=== PATIENT | male | born 1960 | race Caucasian/White ===

== ENCOUNTER 2020-08-04 18:37 | Emergency (ER) | payer OTHER, SELFPAY ==
[2020-08-04 18:38] VITALS: BP 186/76; PULSE 114; RESP 18; TEMP 37.3; O2SAT 99; BMI 34.4
[2020-08-04 19:00] LABS: Basophils # 0.1 K/mm3 (0-0.2); Eosinophils # 0.2 K/mm3 (0.0-0.4); Eosinophils % 2.8 % (0.1-12.0); Hematocrit 49.1 % (42.0-52.0); Hemoglobin 16.4 g/dL (14.1-18.0); Lymphocytes # 2.9 K/mm3 (0.7-4.5); Lymphocytes % 40.1 % (10-50); Mean Corpuscular HGB Conc 33.3 g/dL (31.8-35.4); Mean Corpuscular Hemoglobin 30.5 pg (27.0-31.2); Mean Corpuscular Volume 91.5 fl (80-94); Mean Platelet Volume 7.4 fl (7.4-10.4); Monocytes # 0.1 K/mm3 (0.1-1.0); Monocytes % 1.5 % (1.7-9.3); Neutrophils % 54.6 % (37.0-80.0); Platelet Count 357 K/mm3 (142-424); Red Blood Count 5.37 M/mm3 (4.60-6.20); Red Cell Distribution Width 13.5 % (11.5-17.5); White Blood Count 7.4 K/mm3 (4.8-10.8)
[2020-08-04 19:01] LABS: Chloride 101 mmol/L (98-107); Potassium 3.9 mmoL/L (3.5-5.1); Sodium 143 mmol/L (136-145)
--- NOTE | 2020-08-04 19:01 | XR_ITS ---
PROCEDURE: XR CHEST 2V CLINICAL HISTORY: cough COMPARISON: No exams were available for comparison FINDINGS: The cardiomediastinal silhouette and pulmonary vascularity are within normal limits. The lungs are clear without infiltrates, suspicious nodules, or pleural effusions. DISH of the midthoracic spine. Degenerative changes of the shoulders IMPRESSION: No acute findings. Dictated by: Jose Alberto Ingram MD 08/05/2020 06:05 Jose Alberto Ingram MD in [place] 08/05/2020 06:05
[2020-08-04 19:03] LABS: Blood Urea Nitrogen 21 mg/dl (9-20); Creatinine Clearance Estimated 103 mL/min (50-200); Estimated Glomerular Filt Rate 62 ml/min (>60); GFR (African American) 75 ML/MIN (>60)
--- NOTE | 2020-08-04 19:03 | HMH.EDGENADL ---
ED Disposition Condition on Discharge: Good - Critical Care Critical Care Time: No <DelanochristianoRigoberto joe - Last Filed: 08/04/20 19:49> <Young Abernathy - Last Filed: 08/04/20 21:26> Clinical Impression: Dyspepsia, Abdominal pain in male, Diverticulitis, COVID-19 virus IgG antibody detected Disposition: Home, Self-Care Instructions: DI for Diverticulitis Additional Instructions: fluids and recheck if any problems and call pcp for follow up Prescriptions: metroNIDAZOLE [Flagyl 500mg Tablet] 500 mg PO TID #30 tab Prescription Printed levoFLOXacin [Levaquin 500mg tab] 500 mg PO DAILY #7 tab Prescription Printed Referrals: Margie Gutiérrez [Primary Care Provider] - Attestation: On 08/04/20, the high probability of a clinically significant, sudden or life threatening deterioration of the following system(s) required my full and direct attention, intervention and personal management. The time I documented below is in addition to time spent performing reported procedures but includes the following listed in this critical care notation. Medical Decision Making - Medical Records Medical records reviewed: Yes: I reviewed the patient's medical records. - Yoshi Inquiry Pt receiving controlled substance: No - Lab Data Result diagrams: 08/04/20 18:46 08/04/20 18:46 - ECG Data Tracing #1 ECG initial impression date: 08/04/20 ECG initial impression time: 19:08 - Reevaluation(s) Time: 19:49 <Rigoberto Amos - Last Filed: 08/04/20 19:49> - Lab Data Lab results reviewed: Yes: I reviewed the patient's lab results. Result diagrams: 08/04/20 18:46 08/04/20 18:46 - Radiology Data #1 Image(s): Chest Image Reviewed: Yes I reviewed the patient's radiology image Preliminary Findings: Normal/NAD - CT Data CT Scan: Abdomen, Pelvis Time Received: 21:[address] Reviewed: Yes: I have viewed the radiologist's interpretation Preliminary Findings: Abnormal (diverticulitis) <Young Abernathy - Last Filed: 08/04/20 21:26> Vital Signs: 08/04/20 18:38 Temperature 99.2 F Temperature Source Oral Pulse Rate [Left Radial] 114 H Respiratory Rate 18 Blood Pressure [Right Arm] 186/76 H Blood Pressure Mean [Right Arm] 112 Blood Pressure Source [Right Arm] Automatic Cuff Blood Pressure Position [Right Arm] Sitting 02 Sat by Pulse Oximetry 99 Oxygen Delivery Method Room Air - Lab Data Lab Results 08/04/20 18:46: WBC 7.4, RBC 5.37, Hgb 16.4, Hct 49.1, MCV 91.5, MCH 30.5, MCHC 33.3, RDW 13.5, Plt Count 357, MPV 7.4, Neut % (Auto) 54.6, Lymph % (Auto) 40.1, Montgomery % (Auto) 1.5 L, Eos % (Auto) 2.8, Baso % (Auto) 1.0, Neut # (Auto) 4.0, Lymph # (Auto) 2.9, Montgomery # (Auto) 0.1, Eos # (Auto) 0.2, Baso # (Auto) 0.1 08/04/20 18:46: Sodium 143, Potassium 3.9, Chloride 101, Carbon Dioxide 24, Anion Gap 21.9 H, BUN 21 H, Creatinine 1.20, Estimated Creat Clear 103, Estimated GFR 62, Est GFR ( Amer) 75, Glucose 82, Calcium 10.3 H, Total Bilirubin 1.1, AST 39, ALT 36, Alkaline Phosphatase 57, Total Protein 9.5 H, Albumin 5.9 H, Globulin 3.6 H, Albumin/Globulin Ratio 1.6 08/04/20 18:46: SARS-CoV-2 IgG Ab (Rapid) Positive A, SARS-CoV-2 IgM Ab (Rapid) Negative 08/04/20 18:46: Troponin I < 0.01, Lipase 233 Orders (Tests/Meds): ED MEDICATIONS Discontinued Medications Generic Name Dose Route Start Last Admin Trade Name Freq PRN Reason Stop Dose Admin Ketorolac Tromethamine 30 mg 08/04/20 20:10 08/04/20 20:21 Ketorolac 30mg/Ml Vial IV 08/04/20 20:11 30 mg ONCE ONE Administration Promethazine HCl 25 mg 08/04/20 19:47 08/04/20 19:57 Promethazine Hcl 25mg/Ml 1ml Vial IV 08/04/20 19:48 25 mg ONCE ONE Administration Sodium Chloride 25 ml 08/04/20 19:47 08/04/20 19:57 Sodium Chloride 0.9% 25ml Bag IV 08/04/20 19:48 25 ml ONCE ONE Administration ORDERS Category Date Time Status CT abdomen pelvis w con Stat Cat Scan 08/04/20 19:48 Taken XR chest 2V Stat Exams
[2020-08-04 19:04] LABS: Alanine Aminotransferase 36 U/L (12-78); Albumin Level 5.9 g/dl (3.5-5.0); Albumin/Globulin Ratio 1.6 (1.1-1.8); Alkaline Phosphatase 57 U/L (38-126); Anion Gap 21.9 mEq/L (5-15); Aspartate Amino Transferase 39 U/L (17-59); Bilirubin,Total 1.1 mg/dl (0.2-1.3); Calcium 10.3 mg/dl (8.4-10.2); Carbon Dioxide 24 mmol/L (22.0-30.0); Globulin 3.6 g/dL (1.3-3.2); Glucose 82 mg/dl (74-100); Total Protein,Serum 9.5 g/dl (6.3-8.2)
--- NOTE | 2020-08-04 19:06 | ECG_ITS ---
APPROVED REPORT Exam: Resting ECG HR:95 bpm ECG Measurements Heart Rate 95 AXES AZ 152 P 60 QRSd 92 QRS 75 QT 346 T 6 QTc 434 Conclusion Normal sinus rhythm Nonspecific ST and T wave abnormality Abnormal ECG Electronically signed by : Gabino Shah, 08/06/2020 19:59:16
--- NOTE | 2020-08-04 19:18 | PC.NURSE ---
received report from day nurse, evert machado rn
[2020-08-04 19:20] LABS: Lipase 233 U/L (23-300)
[2020-08-04 19:35] LABS: Coronavirus 19 IgG Antibody Positive (Negative); Coronavirus 19 IgM Antibody Negative (Negative)
[2020-08-04 19:44] LABS: Troponin I < 0.01 ng/ml (0.00-0.034)
--- NOTE | 2020-08-04 19:48 | CT_ITS ---
PROCEDURE: CT ABDOMEN PELVIS W CON CLINICAL INDICATION: abd pain Lower abdominal pain with nausea and vomiting COMPARISON: CT ABDPELW CT ABD PELVIS W/ CONTRAST from 03/03/2014 TECHNIQUE: IV Contrast: 75ML Isovue 370 Oral Contrast None Axial images obtained with sagittal and coronal reformats. All CT scans at the facility use one or more dose reduction, viz: automated exposure control, ma/kV adjustment per patient size (including targeted exams where dose is matched to indication, i.e. head), or iterative reconstruction technique. FINDINGS: LOWER THORAX: There is a subpleural opacity in the right lower lobe posteriorly and laterally not significantly changed measuring approximately 8 3 mm. ABDOMEN & PELVIS: Fatty liver. No radiopaque gallstones. The spleen and adrenal glands have an unremarkable appearance. No pancreatic mass or peripancreatic inflammatory change. No renal or ureteral calculi. There are left-sided parapelvic renal cysts versus hydronephrosis.. There is a left retroaortic live renal vein. There is given history of appendectomy. Stomach is slightly prominent with an air-fluid level. There is diverticulosis of the descending and sigmoid colon with stranding of the pericolic fat of the sigmoid colon in the left lower quadrant with inflamed diverticula noted. No abscess or perforation apparent. No free fluid apparent. There are degenerative changes in the thoracic and lumbar spine with prominent anterior osteophytes in the lower thoracic spine consistent with DISH. IMPRESSION: 1. Acute diverticulitis of the sigmoid colon. No evidence of abscess or perforation. 2. Left-sided parapelvic renal cyst versus hydronephrosis 3. Other nonacute findings as described above Dictated by: Jose Alberto Ingram MD 08/05/2020 09:32 Jose Alberto Ingram MD in [place] 08/05/2020 09:32
--- NOTE | 2020-08-04 20:26 | PC.NURSE ---
pt to RAD
[2020-08-04 21:51] VITALS: BP 121/75; PULSE 76; RESP 16; TEMP 36.7; O2SAT 98
--- NOTE | 2020-08-05 08:34 | PC.NURSE ---
Pt called and advised of positive covid test results.
== END 2020-08-04 21:55 | disposition home or self-care (01) ==
PROVIDERS: Emergency Provider Emergency Medicine; PCP Family Medicine
DX: U07.1 COVID-19 (principal); K57.92 Diverticulitis of intestine, part unspecified, without perforation or abscess without bleeding; Z01.84 Encounter for antibody response examination; Z88.5 Allergy status to narcotic agent; R00.0 Tachycardia, unspecified
CPT/HCPCS: 71046; 74177; 80053; 83690; 84484; 85025; 86328; 93005; 96365; 96375; 99283; U0003; U0004

== ENCOUNTER → 2021-01-19 15:48 | Outpatient (CLI) | payer OTHER, SELFPAY | PROVIDERS: Visit Provider Internal Medicine Gastroenterology | DX: Z01.812 Encounter for preprocedural laboratory examination (principal); Z11.52 Encounter for screening for COVID-19; Z12.11 Encounter for screening for malignant neoplasm of colon | CPT/HCPCS: U0003 ==

== ENCOUNTER 2021-01-22 06:59 | Day surgery (SDC) | payer OTHER, SELFPAY ==
[2021-01-16 08:48] VITALS: BMI 34.0
[2021-01-22 07:20] VITALS: BP 143/79; PULSE 60; RESP 18; TEMP 36.2; O2SAT 99
--- NOTE | 2021-01-22 07:56 | HMH.ANESCL ---
[facility] Anesthesia Checklist - Patient Identification Patient Identification: Arm Band - Structural Data Admitted From: Home Planned Operative Procedure/s: Colonoscopy Consent for Planned Operative Procedure(s) Verified: Yes - NPO Status Verified Time NPO: 00:00 - Airway Assessment C-Spine Mobility Assessed: Yes TMJ Mobility Assessed: Yes Dentition: Good Dentition - Neurological Assessment Level of Consciousness: Awake Hx Seizures: No Numbness or tingling in extremities: No - Anesthesia Plan Anesthesia Risk discussed: Yes Anesthesia Plan: Verified ASA Class: II Anesthesia Type: MAC [facility] History I have reviewed the patient's past medical history: Yes Medical History: Reports:: Hypertension Denies:: Cancer, Diabetes Mellitus Type 1, Diabetes Mellitus Type 2, Internal Pacemaker, MRSA, Seizures *Have you ever received a pneumonia vaccine?: No *Have you received a flu vaccine this season?: Yes Anesthesia experience/problems:: None Other Surgeries: No: Pacemaker Amputation: No Fractures: No - *Social History Last grade of school completed: 11th or 12th Smoking Status: Never smoker Alcohol Intake: current Alcohol Intake Frequency:: 3 or more drinks per day Substance Use Type: denies use *Occupational Status:: employed Housing: house Household Members: spouse *Travel in the last 8 weeks: None Family Hx:: No significant family history
[2021-01-22 07:58] VITALS: O2SAT 97
--- NOTE | 2021-01-22 08:02 | P.PCN_ITS ---
[facility] Procedure Note Procedure Note:: Colonoscopy Procedure Report: Colonoscopy Endoscopist: Richard Ellington II, MD Referring physician: Margie Gutiérrez MD Date of Procedure: January 22, 2021 Equipment: Olympus 190 variable stiffness pediatric colonoscope Sedation: MAC sedation Indication: Mr. Rowan is a 60-year-old gentleman who is here for follow-up screening/surveillance colonoscopy. His last colonoscopy was 10 years ago (Drake Burgess M.D.) at [facility]. The patient reports no weight loss, change in his bowel habits or rectal bleeding. He reports no family history of colon cancer. He has had a couple of bouts of diverticulitis and his last bout was in August 2020. He did go to the emergency department and was treated with outpatient antibiotics. He does get some intermittent right lower quadrant abdominal pain. He feels this is his diverticular pain. He had an appendectomy in 1990. Procedure: Prior to the procedure, a history and physical exam was performed, and patient's medications and allergies were reviewed. The risks, benefits and alternatives of the sedation and procedure were discussed with the patient. All questions were answered and informed consent was obtained. The patient was brought to the procedure room. Patient identification and proposed procedure were verified by the physician and the nurse. The patient was placed in a left lateral decubitus position and the scope was passed under direct vision. Throughout the procedure, the patient's blood pressure, pulse, and oxygen saturations were monitored continuously. The colonoscopy was accomplished without difficulty. The patient tolerated the procedure well. Findings: On digital rectal examination there was normal rectal tone. There were no external hemorrhoids. The prostate was 2+ with moderate firmness throughout the prostate gland and some increased firmness along the right lobe upper margin. The colonoscope was introduced through the anal canal to the rectum and advanced to the cecum. The ileocecal valve and appendiceal orifice were identified. The scope was advanced a short distance into the ileum which appeared grossly normal. The scope was then withdrawn into the colon. There were scattered diverticuli throughout the colon but more predominantly in the descending and sigmoid colon (LEFT colon). The remainder of the colonic mucosa was normal. The rectum itself was normal. Upon retroflexion within the rectum there were grade 1-2 internal hemorrhoids. The preparation was excellent throughout with [place] Preparation Score of 9. The cecal time was 10 minutes. Impression: 1. Pandiverticulosis 2. Grade 1-2 internal hemorrhoids 3. Prostate firmness/asymmetry Plan: The patient will not require screening/surveillance colonoscopy again for 10 years by ACS guidelines. I would encourage dietary measures and bulking fiber supplementation on a long- term daily maintenance basis. I would recommend PSA testing if this has not been done recently.
[2021-01-22 08:22] VITALS: BP 95/56; PULSE 67; RESP 18; TEMP 36.4; O2SAT 94
[2021-01-22 08:32] VITALS: BP 108/69; PULSE 53; RESP 18; O2SAT 96
[2021-01-22 08:42] VITALS: BP 115/67; PULSE 58; RESP 18; O2SAT 97
[2021-01-22 09:03] VITALS: BP 130/71; PULSE 51; RESP 18; O2SAT 99
== END 2021-01-22 09:09 | disposition home or self-care (01) ==
LOC: OUTP 07:00
PROVIDERS: PCP Family Medicine; Visit Provider Internal Medicine Gastroenterology
PROC: 0DJD8ZZ Inspection of Lower Intestinal Tract, Via Natural or Artificial Opening Endoscopic (ICD-10-PCS; CPT 45378; principal; 2021-01-22 08:00)
DX: Z12.11 Encounter for screening for malignant neoplasm of colon (principal); K57.30 Diverticulosis of large intestine without perforation or abscess without bleeding; K64.0 First degree hemorrhoids; Z90.49 Acquired absence of other specified parts of digestive tract; I10 Essential (primary) hypertension; Z88.6 Allergy status to analgesic agent; Z79.899 Other long term (current) drug therapy
CPT/HCPCS: 45378

== ENCOUNTER 2023-05-01 08:47 | Emergency (ER) | payer OTHER, SELFPAY ==
[2023-05-01] VITALS (14 sets, daily range): BP systolic 115–160; BP diastolic 69–100; PULSE 57–152; RESP 18–19; TEMP 36.9–37; O2SAT 95–99; BMI 36.1
--- NOTE | 2023-05-01 08:52 | ECG_ITS ---
APPROVED REPORT Exam: Resting ECG HR:151 bpm ECG Measurements Heart Rate 151 AXES QRSd 93 QRS 41 QT 259 T 49 QTc 345 Conclusion ATRIAL FIBRILLATION WITH RAPID VENTRICULAR RESPONSE NONSPECIFIC ST & T-WAVE ABNORMALITY CRITICAL TEST RESULT UNCONFIRMED REPORT Electronically signed by : Gabino Shah MD 05/01/2023 18:32:12
--- NOTE | 2023-05-01 08:55 | PC.NURSE ---
Dr. Bustamante at [facility] for pt eval
--- NOTE | 2023-05-01 08:55 | XR_ITS ---
FINAL REPORT CLINICAL HISTORY: new afrvr COMPARISON: 08/04/2020 FINDINGS: SINGLE-VIEW CHEST The heart size is normal. The mediastinum is normal. The lungs are clear. There is no pneumothorax. IMPRESSION: No acute cardiopulmonary process. Reviewed, Interpreted and Dictated by Aden Dickinson MD Transcribed by Waleska Ku Authenticated and [facility]
--- NOTE | 2023-05-01 09:16 | HMH.EDGENADL ---
Discharge Plan Disposition Patient Disposition: Home, Self-Care Prescriptions Prescriptions: No Action lisinopril 20 MG tablet 20 mg PO DAILY allopurinol 100 MG tablet 100 mg PO DAILY fenofibrate 160 MG tablet 80 mg PO DAILY hydrochlorothiazide 12.5 mg capsule 12.5 mg PO DAILY Patient Comments: TAKE 1 CAPSULE BY MOUTH DAILY Referrals Follow up/Referrals: Margie Gutiérrez [Primary Care Provider] - See instructions Abdelrahman Sandoval MD [Staff Physician] - See instructions Clinical Impressions Clinical Impression: Atrial fibrillation with rapid ventricular response Discharge ED Provider: Mao Bustamante General Adult HPI General Chief complaint: Arrhythmia/Palpitations Stated complaint: irregular heartbeat Time Seen by Provider: 05/01/23 08:53 Mode of Arrival: Ambulatory Source of Information: Patient Limitations: No Limitations History of Present Illness HPI narrative: Is a 62-year-old male with history of EVY, intermittent irregular heartbeat presenting with palpitations. Patient states that he woke up today, 05/01 with palpitations and feeling of anxiety. Denies chest pain, shortness of breath, nausea or vomiting, diaphoresis, weakness, lower extremity swelling, or any other concerns associated. Has had this in the past intermittently for which she wore a Holter monitor, but nothing was caught on Holter monitor. Patient states he went to bed just fine yesterday, woke up today and had palpitations. Patient is positive this was not present yesterday. Related Data Home Medications Medication Instructions Recorded Confirmed allopurinol 100 mg tablet 100 mg PO DAILY gout 01/16/21 05/01/23 fenofibrate 160 mg tablet 80 mg PO DAILY Cholesterol 01/16/21 05/01/23 lisinopril 20 mg tablet 20 mg PO DAILY High Blood Pressure 01/16/21 05/01/23 hydrochlorothiazide 12.5 mg capsule 12.5 mg PO DAILY High Blood 05/01/23 05/01/23 Pressure Allergies Allergy/AdvReac Type Severity Reaction Status Date / Time codeine [CODEINE] Allergy Mild Verified 05/03/21 09:43 [facility] Disclaimer: The information contained in this section may have been updated after the patient was seen, as this information can be updated by other users. Social History Smoking Status: Never smoker second hand exposure: No alcohol intake: current substance use type: denies use current occupational status: employed Travel in the last 8 weeks: None household members: spouse housing: house current occupation: young current occupational exposures/hazards: No caffeine: No ROS Obtained: Yes All systems reviewed & no additional complaints except as documented Physical Exam General General appearance: alert, in no apparent distress, anxious and other ( ) Head Head exam: atraumatic and normocephalic Eye Eye exam: Present normal appearance, PERRL and EOMI ENT ENT exam: Present mucous membranes moist Neck Neck exam: Present normal inspection, full ROM and trachea midline Respiratory Respiratory exam: Present normal lung sounds bilaterally; Absent respiratory distress, wheezes, stridor, accessory muscle use or prolonged expiratory phase Cardiovascular Cardiovascular exam: Present tachycardia and irregular rhythm Abdominal Exam Abdominal exam: Present soft; Absent distention, tenderness, guarding, rebound, rigidity or normal bowel sounds Extremities Exam Extremities exam: Absent edema Neurological Exam Neurological exam: Present alert, oriented X3, CN II-XII intact and normal gait; Absent motor sensory deficit Skin Skin exam: Present warm and dry; Absent diaphoresis or erythema Medical Decision Making Medical Records Medical records reviewed: Yes I reviewed the patient's medical records. Yoshi Inquiry Pt receiving controlled substance: No Yoshi was queried for this patient: No Vital Signs: 05/01/23 08:48 05/01/23 08:55 05/01/23 09:01 Temperature 98.6 F Temperature Source Oral
[2023-05-01 09:23] LABS: Basophils # 0.1 K/mm3 (0-0.2); Basophils % 0.9 % (0.1-2.0); Eosinophils # 0.1 K/mm3 (0.0-0.4); Eosinophils % 1.7 % (0.1-12.0); Hematocrit 49.7 % (42.0-52.0); Hemoglobin 16.9 g/dL (14.1-18.0); Lymphocytes # 2.4 K/mm3 (0.7-4.5); Lymphocytes % 29.1 % (10-50); Mean Corpuscular HGB Conc 34.1 g/dL (31.8-35.4); Mean Corpuscular Hemoglobin 30.8 pg (27.0-31.2); Mean Corpuscular Volume 90.3 fl (80-94); Mean Platelet Volume 7.1 fl (7.4-10.4); Monocytes # 0.4 K/mm3 (0.1-1.0); Monocytes % 5.2 % (1.7-9.3); Neutrophils # 5.3 K/mm3 (1.8-7.8); Platelet Count 275 K/mm3 (142-424); Red Cell Distribution Width 13.1 % (11.5-17.5); White Blood Count 8.4 K/mm3 (4.8-10.8)
[2023-05-01 09:24] LABS: Alanine Aminotransferase 41 U/L (12-78); Albumin Level 4.9 g/dl (3.5-5.0); Albumin/Globulin Ratio 1.5 (1.1-1.8); Alkaline Phosphatase 59 U/L (38-126); Anion Gap 14.4 mEq/L (5-15); Aspartate Amino Transferase 41 U/L (17-59); Bilirubin,Total 0.7 mg/dl (0.2-1.3); Blood Urea Nitrogen 26 mg/dl (9-20); Calcium 9.7 mg/dl (8.4-10.2); Carbon Dioxide 28 mmol/L (22.0-30.0); Chloride 102 mmol/L (98-107); Chol/HDL Ratio 3.8 (1-3.5); Cholesterol 214 mg/dl (140-200); Creatinine Clearance Estimated 108 mL/min (50-200); Estimated Glomerular Filt Rate 68 ml/min (>60); GFR (African American) 82 ML/MIN (>60); Globulin 3.3 g/dL (1.3-3.2); Glucose 111 mg/dl (74-100); HDL Cholesterol 57 mg/dl (40-60); Potassium 4.4 mmoL/L (3.5-5.1); Sodium 140 mmol/L (136-145); Total Protein,Serum 8.2 g/dl (6.3-8.2); Triglycerides 159 mg/dl (30-150); VLDL Cholesterol 32 mg/dL (0-40)
[2023-05-01 09:30] LABS: Activated Partial Thrombo Time 26.5 seconds (22.8-30.6)
[2023-05-01 09:36] LABS: Direct LDL Cholesterol 117.36 mg/dL (100-129)
[2023-05-01 09:39] LABS: NT Pro Brain Natriuretic Pep. 40.6 pg/mL (0-125)
--- NOTE | 2023-05-01 09:43 | ECG_ITS ---
APPROVED REPORT Exam: Resting ECG HR:95 bpm ECG Measurements Heart Rate 95 AXES QRSd 101 QRS 26 QT 335 T 36 QTc 388 Conclusion ATRIAL FIBRILLATION ABNORMAL RHYTHM ECG UNCONFIRMED REPORT Electronically signed by : Gabino Shah MD 05/01/2023 18:31:42
[2023-05-01 09:44] LABS: T4 (Thyroxine) 8.9 ug/dl (5.53-11.0)
[2023-05-01 09:49] LABS: Troponin I < 0.01 ng/ml (0.00-0.034)
[2023-05-01 09:57] LABS: Thyroid Stimulating Hormone 1.71 uIU/mL (0.465-4.68)
--- NOTE | 2023-05-01 10:48 | PC.NURSE ---
@ 1035- MD at bedside to review procedure with pt & spouse, crash cart with BMV at bedside. @ 1039- Procedure consent competed with this RN @ 1045- and staff at bedside Etomidate at bedside and pulled per MD. Nasal canula with co2 capnograpy placed and O2 on at 6 lpm. @ 1046- gave time out was completed and reviewed right pt, procedure, medication, MD prepared cart to sync at 120 joules. BP141/86, HR 98 afib, RR 16, sat 100% on 6lpm nc. @ 1048- gave 1 shock delivered. pt HOB lowered and performed jaw thrust maneuver and BMV over pt's mouth for blow by O2. @ 1049- cardioversion complete and hr in sinus rhythm at 57 bpm, BP 150/77. RR 14, 100% on 6lpm nC @ 1053- pt able to converse, oriented. @ 1056- bp 133/71. RR 17, 98 % on 4lpm nc, hr 61 sinus rhythm @ 1100- pt alert, oriented, and conversing normally. back to baseline. MD would like to leave O2 on for a little bit longer o2 @ 2lpm nc now 96% sat.
--- NOTE | 2023-05-01 12:15 | ECG_ITS ---
APPROVED REPORT Exam: Resting ECG HR:55 bpm ECG Measurements Heart Rate 55 AXES TX 171 P 253 QRSd 97 QRS 15 QT 390 T -2 QTc 378 Conclusion ECTOPIC ATRIAL BRADYCARDIA MODERATE ST DEPRESSION [0.05+ mV ST DEPRESSION] ABNORMAL ECG UNCONFIRMED REPORT Electronically signed by : Gabino Shah MD 05/01/2023 18:31:03
[2023-05-01 12:35] LABS: Troponin I 0.02 ng/ml (0.00-0.034)
[2023-05-01 16:05] LABS: Hemoglobin A1C 5.3 % (4.0-6.0)
== END 2023-05-01 12:38 | disposition home or self-care (01) ==
PROVIDERS: Emergency Provider Emergency Medicine; PCP Family Medicine
DX: I48.91 Unspecified atrial fibrillation (principal); G47.33 Obstructive sleep apnea (adult) (pediatric); R00.1 Bradycardia, unspecified
CPT/HCPCS: 36415; 71045; 80053; 80061; 83036; 83880; 84436; 84443; 84484; 85025; 85730; 93005; 96361; 96374; 96376; 99291; J3475

== ENCOUNTER → 2023-05-12 15:41 | Outpatient (CLI) | payer OTHER, SELFPAY | PROVIDERS: PCP Family Medicine; Visit Provider Internal Medicine | DX: I48.0 Paroxysmal atrial fibrillation (principal); R94.31 Abnormal electrocardiogram [ECG] [EKG] | CPT/HCPCS: 93270 ==

== ENCOUNTER → 2023-05-26 10:47 | Outpatient (CLI) | payer OTHER, SELFPAY ==
[2023-05-26 13:11] LABS: Anion Gap 11.4 mEq/L (5-15); Blood Urea Nitrogen 20 mg/dl (9-20); Carbon Dioxide 31 mmol/L (22.0-30.0); Chloride 103 mmol/L (98-107); Estimated Glomerular Filt Rate 68 ml/min (>60); GFR (African American) 82 ML/MIN (>60); Glucose 100 mg/dl (74-100); Magnesium 2.1 mg/dl (1.6-2.3); Potassium 4.4 mmoL/L (3.5-5.1); Sodium 141 mmol/L (136-145)
== END ==
PROVIDERS: PCP Family Medicine; Visit Provider Nurse Practitioner
DX: I47.20 Ventricular tachycardia, unspecified (principal); I48.0 Paroxysmal atrial fibrillation; R94.31 Abnormal electrocardiogram [ECG] [EKG]
CPT/HCPCS: 36415; 80048; 83735

== ENCOUNTER → 2023-06-10 06:10 | Outpatient (CLI) | payer OTHER, SELFPAY ==
--- OUTSIDE RECORDS SUMMARY | 2023-06-10 06:12 | XMS_ITS ---
Author Name Unknown Address [address] [place] [address] Phone Organization [facility] Address [address] [place] [address] Phone Care Team Providers Care Pad Extractor Tender Name Role Phone KARINE SIU, DIO Moncada Primary Care Provider [phone] Colin SIU, Samy Mack Unavailable [phone] Problems Includes: Active, inactive, and resolved Problems All Visits Onset Date Resolved Date Provider Condition S tatus Joint Pain, Localized in Both Shoulders 03/28/2023 Bin Calero PA-C Active Plan of Treatment Pending Tests Order Diagnosis Results Due Ordering P irvin Radiology - CT Scan Shoulder Overweight 04/11/23 Charles Calero PA-C Future Appointments Date Time Location Provi jodie Follow Up 10/20/2023 1:15PM [facility] paedics [facility] B Bin Calero PA-C Instructions to patient Lose weight Last Documented On 3 2:04PM ; [facility] Lose weight Last Documented On 3 2:02PM ; [facility] Lose weight Last Documented On 3 10:26AM ; [facility], [facility] Assessments Includes: Ass
--- OUTSIDE RECORDS SUMMARY | 2023-06-10 06:13 | XMS_ITS ---
"Care Plan - [facility], [facility] Created on: June 10, 2023 Murali Syed Jr : 1960 Sex: Male Author Name Unknown Address [address] [place] [address] Phone Organization [facility] Address [address] [place] [address] Phone Care Team Providers Care Computer Systems Technician Name Role Phone KARINE SIU, DIO Moncada Primary Care Provider [phone] Colin SIU, Samy Mack Unavailable [phone]"
--- OUTSIDE RECORDS SUMMARY | 2023-06-10 06:13 | XMS_ITS | Clinical Summary ---
Author Name Unknown Address [address] [place] [address] [place] [address] Phone Organization [facility] Address [address] [place] [address] Phone Care Team Providers Care Electrotype Servicer Name Role Phone DIO MILTON MD Primary Care Provider [phone] Colin SIU, Samy Makc Unavailable Unavail able Reason for Visit and Chief Complaint The Chief Complaint is: Bilateral shoulder pain Problems Includes: Problems addressed during this encounter and other active Problems All Visits Onset Date Resolved Date Provider Condition S tatus Joint Pain, Localized in Both Shoulders 03/28/2023 Bin Calero PA-C Active Plan of Treatment 62 year old male presents in the office to follow up on his right shoulder. He has had a prior corticosteroid injection about 6 weeks ago that has provided him with significant relief. I have discussed future treatment options with him in the office today. I would like to repeat his x-ray images every six months to make sure that he is not wearing the shoulder socket. I will have him utilize repeat corticosteroid injections in the office as needed in the future for pain control. I will have him follow up in 5 months. I have answered all questions in the office with him today. - Last Documented On 05/26/2023 2:35PM ; [facility], [facility] Future Appointments Date Time Location Provi jodie Follow Up 10/20/2023 1:15PM [facility] paedics [facility] B Bin Calero PA-C Instructions to patient
--- OUTSIDE RECORDS SUMMARY | 2023-06-10 06:13 | XMS_ITS | Clinical Summary ---
Author Name Unknown Address [address] [place] [address] Phone Organization [facility] , [facility] Address [address] [place] [address] Phone Care Team Providers Care Cutter In Name Role Phone KARINE SIU, DIO Moncada Primary Care Provider [phone] Colin SIU, Samy Mack Unavailable [phone] Reason for Visit and Chief Complaint The Chief Complaint is: Bilateral shoulder pain Problems Includes: Problems addressed during this encounter and other active Problems Current Visit Onset Date Resolved Date Provider Stephanie saba Status Joint Pain, Localized in Both Shoulders 03/28/2023 Bin Calero PA-C Active Plan of Treatment Patient was explained treatment options regarding glenohumeral joint arthritis at this stage. These would be limited conservatively to injections and medication. Physical therapy is often not productive and can exacerbate pain in these stages. Surgical options would include shoulder arthroplasty either reverse or anatomic total replacement. They understand the risks and benefits of these options were explained to the patient. we will proceed with CT Arthrex protocol of the right shoulder he will see Dr. Arce in same-day follow-up - Last Documented On 03/28/2023 11:12AM ; [facility] Pending Tests Order Diagnosis Results Due Ordering Nathan bryan Radiology - CT Scan Shoulder Overweight 04/11/23 Charles Calero PA-C Future Appointments Date Time Location Provi jodie Follow Up 10/20/2023 1:15PM [facility] paedics [facility]
--- OUTSIDE RECORDS SUMMARY | 2023-06-10 06:13 | XMS_ITS | Clinical Summary ---
Author Name Unknown Address [address] [place] [address] Phone Organization [facility] , [facility] Address [address] [place] [address] Phone Care Team Providers Care Labor And Delivery Nurse Name Role Phone DIO MILTON MD Primary Care Provider [phone] [facility], Samy Mack Unavailable Unavail able Reason for Visit and [...] his right shoulder. He has had a CT scan and is here to go over those results. I have reviewed the CT images in the office with him today. His CT images reveals severe glenohumeral arthritis with glenoid bone loss. He is experiencing glenoid bone loss. I have discussed further treatment options with him in the office today. This includes operative and non-operative treatment options. I indicate him for a right total shoulder arthroplasty. The patient understands the risk of surgery to include but are not limited to infection, possible nerve damage, tendon or vessel injury, scar sensitivity and anesthesia.The patient understands the need for postoperative rehabilitation and therapy. The patient had no further questions regarding the surgery or potential risks. He is wishing to hold off on surgery until later in the fall. We will proceed with a corticosteroid injection in the office today of bilateral shoulders. I have discussed risks and benefits of the injection. Consent was given to proceed. I have answered all question
--- NOTE | 2023-06-10 06:16 | NM_ITS ---
APPROVED REPORT Exam: Nuclear Stress Test Indication: DYSRHYTHMIA, HTN, PALPITATIONS, ABN EKG Patient Location: Outpatient Stress Tech: Aruna Sharp LA Tech:HILDA Chowdhury RT (R)(N)(M) Ht: 5 ft 8 in Wt: 225 lbs HR: 51 bpm BP: 154/71 mmHg BSA: 2.15 m2 Rhythm: NSR TID: 1.07 BMI: 34.2 History: DYSRHYTHMIA, HTN, PALPITATIONS, ABN EKG Procedure: Patient received 0.4 mg of intravenous Lexiscan, resting heart rate 51 bpm, resting blood pressure 154/71 mmHg, with Lexiscan maximum heart rate achieved was 84 bpm which is % of the maximum predicted heart rate and blood pressure was 158/77 mmHg. With Lexiscan, patient denied any complaint of chest pain. Cardiac Stress and Resting SPECT Images: Cardiac Stress and Resting SPECT images were obtained using technetium 99m Myoview 31.8 mCi stress and 10.27 mCi at rest. Resting and stress imaging in supine and prone positions demonstrate a large sized, moderate, predominantly fixed perfusion defect in the inferior LV wall from the base and extending distally towards the inferoapical region. There is a small region of partial reversibility towards the LV apex. Gated imaging demonstrates low-normal global LV systolic function. There is mild hypokinesis of the inferior LV wall. LVEF is calculated at 51%. Conclusion: Large sized, moderate, predominantly fixed perfusion defect in the inferior LV wall from the base and extending distally towards the inferoapical region. There is a small region of partial reversibility towards the LV apex. Gated imaging demonstrates low-normal global LV systolic function. There is mild hypokinesis of the inferior LV wall. LVEF is calculated at 51%. Electronically signed by : Bozena Sandoval MD 06/14/2023 01:07:17
--- NOTE | 2023-06-10 06:22 | CA_ITS ---
APPROVED REPORT EXAM: Comprehensive 2D, Doppler, and color-flow Echocardiogram Signal Worker Helper: Celeste Sanz RDCS Ht: 5 ft 10 in Wt: 225lbs BSA: 2.19 BP: 144/68 mmHg Indications: ABN EKG,AF 2D Dimensions LVOT 2.43 cm (M/F) 1.5-2.5 M-Mode Dimensions RVDd 1.49 cm (0.9-2.6) LA Diam 3.74 cm (1.9-4.0) LVDd 7.01 cm (3.5-5.7) Ao Diam 3.09 cm (2.0-3.7) LVDs 4.88 cm (3.5-5.7) IVSd 0.91 cm (0.6-1.1) PWd 1.30 cm (0.6-1.1) EF (Teich) 56.40% FS 30.40% EDV (Teich) 256.20 mL TAPSE 1.94 (<1.7) ESV (Teich) 111.70 mL LV Diastology E Decel Time 187.00 (160-240 msec) E/A Ratio 1.7 MED E' 7.00 (< 7 cm/sec) E'/MED E' Ratio 11.53 (>14) LAT E' 7.50 (<10 cm/sec) E/LAT E' Ratio 10.76 (>14) Mitral Valve MV E Max Noel. 81.00 (40-130 cm/s) MV A Velocity 47.00 (40-130 cm/s) E/A Ratio 1.72 MV Decel. Time 187.00 (160-240 ms) MV PHT 55.00 ms Left Ventricle The left ventricle is normal size. The left ventricular systolic function is normal. The left ventricular ejection fraction is within the normal range. There is normal left ventricular wall thickness. There is normal LV segmental wall motion. The left ventricular diastolic function is normal. LVEF is 50-55%. Right Ventricle The right ventricle is normal size. The right ventricular systolic function is normal. Atria The left atrium size is normal. The right atrium size is normal. There is no Doppler evidence of interatrial shunt. Aortic Valve The aortic valve is mildly thickened. There is no aortic valvular stenosis. No aortic regurgitation is present. Mitral Valve The mitral valve leaflets are mildly thickened. No evidence of mitral valve stenosis. Mild mitral regurgitation. Tricuspid Valve The tricuspid valve leaflets are thin and pliable. Trace tricuspid regurgitation. There is insufficient TR jet to estimate RVSP. Pulmonic Valve The pulmonary valve is normal in structure. Trace pulmonic regurgitation. Great Vessels The aortic root is normal in size. The ascending aorta is normal in size. IVC is normal in size and collapses >50% with inspiration. Pericardium There is no pericardial effusion. Other Information Study Quality: Fair Conclusion Normal biventricular systolic function. Mild MR, mild TR. Electronically signed by : Bozena Sandoval MD 06/11/2023 23:52:33
--- NOTE | 2023-06-10 09:31 | CA_ITS ---
APPROVED REPORT Exam: Pharmacologic Technologist: Aruna Sharp Ht: 5 ft 10 in Wt: 225 lbs BSA: 2.19 m2 HR: 51 bpm BP: 154/71 mmHg Rhythm: NSR Indications: Abnormal ekg Medical History Medications: Lisinopril,,,,, Allopurinol,,,,, FeNOfibrate,,,,, Stress Test Details Test: LEXISCAN HR Resting HR: 57 bpm Max Heart Rate (APMHR): 159 bpm Max HR Achieved: 92 bpm Target HR (85% APMHR): 135 bpm % of APMHR: 58 Recovery HR: 67 bpm BP Resting BP: 154.0/71.0 mmHg Max BP: 158.0/77.0 mmHg Recovery BP: 136.0/73.0 mmHg ECG Resting ECG: Sinus bradycardia, T wave changes in inferolateral leads Stress ECG: No change Arrhythmia: None Clinical Exercise duration: 04:00 min Highest Stage Achieved: Exercise capacity: 1.0 METs Stress ECG Conclusion Symptoms: Dyspnea Arrhythmias/Ectopy: None ST-T Changes: No change Conclusion: Nondiagnostic Lexiscan stress test due to baseline abnormalities. Myoview images are reported separately. Test Summary REST . . . . . . . Resting REST 11:20 . . 57 . 154/ 71 . . Stage 1 . . . . . . . Myoview Injected Stage 1 01:00 . . 77 . . . . Stage 2 01:00 . . 85 . . . . Stage 3 01:00 . . 79 . 158/ 77 . . Stage 4 01:00 . . 73 . 146/ 76 . Stop exercise at 04:00 RECOVERY 01:00 . . 76 . 157/ 79 . . RECOVERY 02:00 . . 72 . 144/ 74 . . RECOVERY 03:00 . . 69 . 136/ 73 . . RECOVERY 03:04 . . 67 . 136/ 73 . . Electronically signed by : Bozena Sandoval MD 06/14/2023 01:01:31
== END ==
PROVIDERS: PCP Family Medicine; Visit Provider Nurse Practitioner
DX: I48.0 Paroxysmal atrial fibrillation (principal); I47.20 Ventricular tachycardia, unspecified; R94.31 Abnormal electrocardiogram [ECG] [EKG]
CPT/HCPCS: 78452; 93017; 93306; A9502; J2785

== ENCOUNTER → 2023-06-18 11:13 | Outpatient (CLI) | payer OTHER, SELFPAY ==
[2023-06-18 11:47] LABS: Basophils # 0.1 K/mm3 (0-0.2); Basophils % 0.8 % (0.1-2.0); Eosinophils # 0.1 K/mm3 (0.0-0.4); Eosinophils % 1.3 % (0.1-12.0); Hematocrit 42.7 % (42.0-52.0); Hemoglobin 14.9 g/dL (14.1-18.0); Lymphocytes # 1.7 K/mm3 (0.7-4.5); Lymphocytes % 28.1 % (10-50); Mean Corpuscular HGB Conc 34.9 g/dL (31.8-35.4); Mean Corpuscular Hemoglobin 32.7 pg (27.0-31.2); Mean Corpuscular Volume 93.7 fl (80-94); Monocytes # 0.5 K/mm3 (0.1-1.0); Monocytes % 8.9 % (1.7-9.3); Neutrophils # 3.7 K/mm3 (1.8-7.8); Neutrophils % 60.9 % (37.0-80.0); Platelet Count 263 K/mm3 (142-424); Red Blood Count 4.56 M/mm3 (4.60-6.20); Red Cell Distribution Width 13.9 % (11.5-17.5)
[2023-06-18 12:07] LABS: Chloride 104 mmol/L (98-107)
[2023-06-18 12:08] LABS: Potassium 4.6 mmoL/L (3.5-5.1); Sodium 139 mmol/L (136-145)
[2023-06-18 12:10] LABS: Alanine Aminotransferase 35 U/L (12-78); Alkaline Phosphatase 45 U/L (38-126); Anion Gap 11.6 mEq/L (5-15); Aspartate Amino Transferase 39 U/L (17-59); Bilirubin,Direct 0.2 mg/dl (0.0-0.4); Bilirubin,Indirect 0.4 mg/dL (0.0-0.9); Bilirubin,Total 0.6 mg/dl (0.2-1.3); Bilirubin,Unconjugated 0.4 mg/dL (0.0-1.1); Blood Urea Nitrogen 19 mg/dl (9-20); Carbon Dioxide 28 mmol/L (22.0-30.0); Cholesterol 187 mg/dl (140-200); Estimated Glomerular Filt Rate 76 ml/min (>60); GFR (African American) 92 ML/MIN (>60); Triglycerides 162 mg/dl (30-150); VLDL Cholesterol 32 mg/dL (0-40)
[2023-06-18 12:11] LABS: Albumin Level 4.6 g/dl (3.5-5.0); Calcium 9.7 mg/dl (8.4-10.2); Chol/HDL Ratio 3.5 (1-3.5); Glucose 97 mg/dl (74-100); HDL Cholesterol 54 mg/dl (40-60); Total Protein,Serum 7.1 g/dl (6.3-8.2)
== END ==
PROVIDERS: PCP Family Medicine; Visit Provider Internal Medicine
DX: I20.89 Other forms of angina pectoris (principal); I47.10 Supraventricular tachycardia, unspecified; I48.0 Paroxysmal atrial fibrillation; I48.91 Unspecified atrial fibrillation; R94.31 Abnormal electrocardiogram [ECG] [EKG]; R94.39 Abnormal result of other cardiovascular function study; I63.9 Cerebral infarction, unspecified; I11.9 Hypertensive heart disease without heart failure; Z79.899 Other long term (current) drug therapy
CPT/HCPCS: 36415; 80048; 80061; 80076; 85025

== ENCOUNTER 2023-06-26 08:02 | Day surgery (SDC) | payer OTHER, SELFPAY ==
[2023-06-26] VITALS (13 sets, daily range): BP systolic 111–165; BP diastolic 46–89; PULSE 52–70; RESP 16–18; TEMP 37; O2SAT 94–99; BMI 34.2
--- NOTE | 2023-06-26 07:02 | IR_ITS ---
APPROVED REPORT Patient Location: Outpatient PROCEDURES Left heart catheterization Left ventriculogram Selective coronary angiogram INDICATION Abnormal Myoview, Angina pectoris Informed consent was obtained prior to the procedure. COMPLICATIONS None Estimated Blood Loss: Less than 10 ml TECHNIQUE One percent lidocaine used to anesthetize the right anterior aspect of the wrist. The right radial artery was accessed via the Seldinger technique. A 6 Vietnamese sheath was placed in the right radial artery. 2.5 mg of Verapamil, 800 mcg of nitroglycerin, 1mg Lidocaine and 5000 U Heparin were given through the arterial sheath. The papa catheter was also used to perform left heart catheterization, left ventriculogram and selective coronary angiogram. At the end of the procedure the sheath was removed good hemostasis was achieved using Traclet band, patient was transferred to the postop holding area in stable condition. ANGIOGRAPHIC RESULTS The left main artery Normal The left anterior descending artery Is accompanied by JADE II flow otherwise angiographically normal The circumflex artery Accompanied by JADE II flow otherwise angiographically normal The right coronary artery Dominant accompanied by JADE II flow otherwise angiographically normal The ESPINOZA ventriculogram reveals Preserved at 50 to 55% The left ventricular end-diastolic pressure 15 mmHg IMPRESSION Diffuse slow coronary artery blood flow consistent with diffuse endothelial dysfunction Preserved ejection fraction 50 to 55% Normal LVEDP Large right-sided cardiac silhouette PLAN 1. Consider CT PE study based on RV dilatation if clinically appropriate 2. Treatment of endothelial dysfunction Electronically signed by : Steven Valdez MD 06/26/2023 11:57:35
[2023-06-26 08:36] LABS: Basophils # 0.1 K/mm3 (0-0.2); Eosinophils # 0.1 K/mm3 (0.0-0.4); Eosinophils % 1.5 % (0.1-12.0); Hematocrit 43.3 % (42.0-52.0); Hemoglobin 15.3 g/dL (14.1-18.0); Lymphocytes # 1.9 K/mm3 (0.7-4.5); Lymphocytes % 30.5 % (10-50); Mean Corpuscular HGB Conc 35.3 g/dL (31.8-35.4); Mean Corpuscular Hemoglobin 32.6 pg (27.0-31.2); Mean Corpuscular Volume 92.2 fl (80-94); Mean Platelet Volume 7.3 fl (7.4-10.4); Monocytes # 0.3 K/mm3 (0.1-1.0); Monocytes % 5.2 % (1.7-9.3); Neutrophils # 3.8 K/mm3 (1.8-7.8); Neutrophils % 61.9 % (37.0-80.0); Platelet Count 242 K/mm3 (142-424); Red Cell Distribution Width 13.6 % (11.5-17.5); White Blood Count 6.1 K/mm3 (4.8-10.8)
[2023-06-26 08:41] LABS: Chloride 105 mmol/L (98-107); Sodium 141 mmol/L (136-145)
[2023-06-26 08:42] LABS: Potassium 3.7 mmoL/L (3.5-5.1)
[2023-06-26 08:44] LABS: Blood Urea Nitrogen 18 mg/dl (9-20); Creatinine Clearance Estimated 112 mL/min (50-200); Estimated Glomerular Filt Rate 76 ml/min (>60); GFR (African American) 92 ML/MIN (>60)
[2023-06-26 08:45] LABS: Anion Gap 11.7 mEq/L (5-15); Calcium 9.2 mg/dl (8.4-10.2); Carbon Dioxide 28 mmol/L (22.0-30.0); Glucose 101 mg/dl (74-100)
== END 2023-06-26 14:55 | disposition home or self-care (01) ==
PROVIDERS: PCP Family Medicine; Visit Provider Internal Medicine
DX: I48.0 Paroxysmal atrial fibrillation (principal); I47.10 Supraventricular tachycardia, unspecified; I25.118 Atherosclerotic heart disease of native coronary artery with other forms of angina pectoris; R94.31 Abnormal electrocardiogram [ECG] [EKG]; R94.39 Abnormal result of other cardiovascular function study; I11.9 Hypertensive heart disease without heart failure
CPT/HCPCS: 80048; 85025; 93458; 99152; C1725; C1760; C1769; J1644; Q9967

== ENCOUNTER → 2023-08-18 14:27 | Outpatient (CLI) | payer OTHER, SELFPAY ==
[2023-08-18 15:08] LABS: Basophils % 0.7 % (0.1-2.0); Eosinophils # 0.2 K/mm3 (0.0-0.4); Eosinophils % 2.9 % (0.1-12.0); Hemoglobin 14.6 g/dL (14.1-18.0); Lymphocytes # 1.5 K/mm3 (0.7-4.5); Lymphocytes % 28.6 % (10-50); Mean Corpuscular HGB Conc 34.7 g/dL (31.8-35.4); Mean Corpuscular Hemoglobin 31.6 pg (27.0-31.2); Mean Corpuscular Volume 90.9 fl (80-94); Mean Platelet Volume 6.5 fl (7.4-10.4); Monocytes # 0.3 K/mm3 (0.1-1.0); Monocytes % 5.9 % (1.7-9.3); Neutrophils # 3.3 K/mm3 (1.8-7.8); Platelet Count 209 K/mm3 (142-424); Red Blood Count 4.62 M/mm3 (4.60-6.20); Red Cell Distribution Width 13.4 % (11.5-17.5); White Blood Count 5.3 K/mm3 (4.8-10.8)
[2023-08-18 15:29] LABS: Anion Gap 8.5 mEq/L (5-15); Blood Urea Nitrogen 15 mg/dl (9-20); Calcium 8.7 mg/dl (8.4-10.2); Carbon Dioxide 28 mmol/L (22.0-30.0); Chloride 105 mmol/L (98-107); Estimated Glomerular Filt Rate 62 ml/min (>60); GFR (African American) 74 ML/MIN (>60); Glucose 97 mg/dl (74-100); Potassium 4.5 mmoL/L (3.5-5.1); Sodium 137 mmol/L (136-145)
== END ==
PROVIDERS: PCP Family Medicine; Visit Provider Internal Medicine
DX: I48.0 Paroxysmal atrial fibrillation (principal); I20.89 Other forms of angina pectoris; I47.10 Supraventricular tachycardia, unspecified; R94.31 Abnormal electrocardiogram [ECG] [EKG]; R94.39 Abnormal result of other cardiovascular function study
CPT/HCPCS: 80048; 85025

== ENCOUNTER 2023-11-24 08:17 | Outpatient (POV) | payer OTHER, SELFPAY | END 2023-11-24 23:59 | disposition home or self-care (01) | LOC: SC 08:17 | PROVIDERS: Visit Provider Specialist/Technologist | DX: Z00.00 Encounter for general adult medical examination without abnormal findings (principal) ==

== ENCOUNTER 2023-12-15 01:40 | Emergency (ER) | payer OTHER, SELFPAY ==
[2023-12-15] VITALS (9 sets, daily range): BP systolic 132–170; BP diastolic 72–94; PULSE 63–91; RESP 16–18; TEMP 36.7–37.3; O2SAT 94–98; BMI 35.1
--- NOTE | 2023-12-15 01:52 | HMH.EDGENADL ---
Discharge Plan Disposition Patient Disposition: Home, Self-Care Prescriptions Prescriptions: New ondansetron HCl 4 mg tablet 4 mg PO Q8H PRN (Reason: nausea and vomiting) 5 Days Qty: 30 0RF No Action amlodipine 5 mg tablet 5 mg PO DAILY Qty: 90 3RF valsartan 320 mg tablet 320 mg PO DAILY Qty: 90 3RF allopurinol 100 MG tablet 100 mg PO DAILY Referrals Follow up/Referrals: Margie Gutiérrez [Primary Care Provider] - See instructions Activity Restrictions/Add. Instructions Additional Instructions/Restrictions: Please follow-up with your primary care provider. Please return to the emergency department if you develop any new or worsening symptoms or become concerned for your health. Please take Zofran as needed for nausea and vomiting. Clinical Impressions Clinical Impression: Abdominal bloating, Nausea & vomiting Instructions Patient Instructions: DI for Acute Abdominal Pain Discharge ED Provider: Yoshi Yost General Adult HPI General Chief complaint: Abdominal Pain Stated complaint: fever, vomiting, bloating Time Seen by Provider: 12/15/23 01:52 History of Present Illness HPI narrative: 63-year-old male with history of atrial fibrillation, diverticulitis presents with abdominal bloating and intermittent vomiting. Symptoms been ongoing for the last couple of days. He denies any fever at home. He reports that he has been treated for diverticulitis multiple times in the past, but has never had any surgical resection. He denies any specific focal pain, but reports some epigastric discomfort. Related Data Home Medications Medication Instructions Recorded Confirmed allopurinol 100 mg tablet 100 mg PO DAILY gout 01/16/21 11/24/23 Previous Rx's Medication Instructions Recorded amlodipine 5 mg tablet 5 mg PO DAILY #90 tabs 10/13/23 valsartan 320 mg tablet 320 mg PO DAILY #90 tabs 10/13/23 ondansetron HCl 4 mg tablet 4 mg PO Q8H PRN nausea and 12/15/23 vomiting 5 days #30 tabs Allergies Allergy/AdvReac Type Severity Reaction Status Date / Time codeine [CODEINE] Allergy Mild Unknown Verified 12/15/23 02:01 allergy reaction [facility] Disclaimer: The information contained in this section may have been updated after the patient was seen, as this information can be updated by other users. Medical History (Updated 12/15/23 @ 03:52 by Yoshi Yost MD) Sensorineural hearing loss (SNHL) of both ears EVY (obstructive sleep apnea) Tinnitus Abnormal electrocardiogram [ECG] [EKG] Paroxysmal A-fib Social History Smoking Status: Never smoker second hand exposure: No alcohol intake: current substance use type: denies use current occupational status: employed Travel in the last 8 weeks: None household members: spouse housing: house current occupation: young current occupational exposures/hazards: No caffeine: No ROS Obtained: Yes All systems reviewed & no additional complaints except as documented Physical Exam General General appearance: alert and in no apparent distress Head Head exam: atraumatic and normocephalic Eye Eye exam: Present normal appearance, PERRL and EOMI ENT ENT exam: Present normal oropharynx and normal external ear exam Neck Neck exam: Present normal inspection and full ROM Chest Chest inspection: Present normal inspection and symmetric chest wall rise; Absent tenderness Respiratory Respiratory exam: Present normal lung sounds bilaterally; Absent respiratory distress Cardiovascular Cardiovascular exam: Present regular rate and normal rhythm Abdominal Exam Abdominal exam: Present soft and distention; Absent tenderness or guarding Extremities Exam Extremities exam: Present normal inspection; Absent edema or joint swelling Back Exam Back exam: Present normal inspection; Absent tenderness Neurological Exam Neurological exam: Present alert and oriented X3; Absent motor sensory deficit Psychiatric Psychiatric exam: Present normal affect and normal mood Skin Skin exam: Present warm, dry and normal color Lymphatic Lymphatic Findings: no adenopathy Medical Decision Making Medical Records Medical records reviewed: Yes I reviewed the patient's medical records. Yoshi Inquiry Pt receiving controlled substance: No Yoshi was queried for this patient: No Vital Signs: 12/15/23 01:47 12/15/23 01:51 12/15/23 02:00 Temperature 99.1 F Temperature Source Oral Pulse Rate 91 H 74 Pulse Rate [Left] 85 Respiratory Rate 16 Blood Pressure 170/94 H Blood Pressure [Right Arm] 170/94 H Blood Pressure Mean Blood Pressure Mean [Right Arm] 119 Blood Pressure Source [Right Arm] Automatic Cuff Blood Pressure Position [Right Arm] Sitting 02 Sat by Pulse Oximetry 95 96 96 Oxygen Delivery Method Room Air 12/15/23 02:00 12/15/23 02:30 12/15/23 03:00 Temperature Temperature Source Pulse Rate 75 75 Pulse Rate [Left] Respiratory Rate Blood Pressure 153/83 H 143/74 H 133/72 Blood Pressure [Right Arm] Blood Pressure Mean 99 97 97 Blood Pressure Mean [Right Arm] Blood Pressure Source [Right Arm] Blood Pressure Position [Right Arm] 02 Sat by Pulse Oximetry 95 95 97 Oxygen Delivery Method 12/15/23 03:01 12/15/23 03:15 12/15/23 03:30 Temperature Temperature Source Pulse Rate 73 72 63 Pulse Rate [Left] Respiratory Rate Blood Pressure Blood Pressure [Right Arm] Blood Pressure Mean Blood Pressure Mean [Right Arm] Blood Pressure Source [Right Arm] Blood Pressure Position [Right Arm] 02 Sat by Pulse Oximetry 96 94 L 98 Oxygen Delivery Method 12/15/23 03:30 12/15/23 03:53 Temperature 98.1 F Temperature Source Pulse Rate 70 Pulse Rate [Left] Respiratory Rate 18 Blood Pressure 132/76 132/76 Blood Pressure [Right Arm] Blood Pressure Mean 98 Blood Pressure Mean [Right Arm] Blood Pressure Source [Right Arm] Blood Pressure Position [Right Arm] 02 Sat by Pulse Oximetry Oxygen Delivery Method Lab Data Lab results reviewed: Yes I reviewed the patient's lab results. Lab Results 12/15/23 02:00: WBC 7.6, RBC 4.67, Hgb 14.8, Hct 43.1, MCV 92.2, MCH 31.8 H, MCHC 34.4, RDW 13.7, Plt Count 183, MPV 7.4, Neut % (Auto) 89.5 H, Lymph % (Auto) 5.4 L, [place] % (Auto) 3.1, Eos % (Auto) 1.2, Baso % (Auto) 0.8, Neut # (Auto) 6.8, Lymph # (Auto) 0.4 L, [place] # (Auto) 0.2, Eos # (Auto) 0.1, Baso # (Auto) 0.1, Total Counted 100, Neutrophils % (Manual) 89 H, Lymphocytes % (Manual) 9 L, Monocytes % (Manual) 1 L, Eosinophils % (Manual) 1, Platelet Estimate Normal, RBC Morphology Normal, Sodium 139, Potassium 4.1, Chloride 107, Carbon Dioxide 25, Anion Gap 11.1, BUN 14, Creatinine 0.90, Estimated Creat Clear 117, Estimated GFR 86, Est GFR ( Amer) 103, Glucose 134 H, Calcium 9.3, Total Bilirubin 1.6 H, AST 64 H, ALT 51, Alkaline Phosphatase 60, Total Protein 7.3, Albumin 4.7, Globulin 2.6, Albumin/Globulin Ratio 1.8, Lipase 107 12/15/23 02:00 12/15/23 02:00 Orders (Tests/Meds): ED MEDICATIONS Discontinued Medications Generic Name Dose Route Start Last Admin Trade Name Freq PRN Reason Stop Dose Admin Lactated Ringer's 1,000 mls @ 999 mls/hr 12/15/23 02:00 12/15/23 02:04 Lactated Ringer's 1000 Ml Bag IV 12/15/23 03:00 999 mls/hr .Q1H1M MARCIAL Administration Iopamidol 75 ml 12/15/23 02:31 12/15/23 02:32 Iopamidol-370 (76%);100ml Bottle IV 12/15/23 02:32 75 ml ONCE ONE Administration Ondansetron HCl 4 mg 12/15/23 01:55 12/15/23 02:04 Ondansetron 4mg/2ml Vial IV 12/15/23 01:56 4 mg ONCE ONE Administration Sodium Chloride 10 ml 12/15/23 02:31 12/15/23 02:32 Sodium Chloride 0.9% 10ml Syr (Rad Only) IV 12/15/23 02:32 10 ml ONCE ONE Administration ORDERS Category Date Time Status CT abdomen pelvis w con Stat Cat Scan 12/15/23 01:56 Completed CBC w/Auto Diff [Complete Blood Count Auto Diff] Stat Lab 12/15/23 02:00 Completed CMP [Comprehensive Metabolic Panel] Stat Lab 12/15/23 02:00 Completed Lipase Stat Lab 12/15/23 02:00 Completed Medical Decision Narrative: 63-year-old male with history of A-fib and diverticulitis presents with abdominal bloating and vomiting. History was obtained interactive discussion with patient, family, chart review. On arrival, patient is [afebrile, hemodynamically stable, satting appropriately, alert, oriented x4, GCS 15], moving all extremities spontaneously. Full physical exam performed and significant for mild abdominal distention without focal tenderness or peritonitis Differential includes but is not limited to gastroenteritis, diverticulitis, pancreatitis, cholecystitis. Patient was given 1 L IV fluid bolus, 4 mg IV Zofran for symptomatic management and correction of underlying abnormalities. Workup initiated including CBC CMP lipase CT abdomen pelvis with IV contrast. On re-evaluation, patient [remains afebrile, HD stable.] Laboratory workup independently interpreted by me and significant for no significant leukocytosis, mild hyperbilirubinemia and mildly elevated AST, negative lipase. Imaging independently interpreted by me and significant for no evidence of cholecystitis, diverticulitis, pancreatitis or other acute intraabdominal pathology. See radiology read for full review of final results. Given patient history, exam and workup, patient's presentation most likely represents developing gastroenteritis. These findings were communicated to patient. He was discharged in stable condition with prescription for Zofran. Return precautions given.. Procedures Risk/Benefits of Procedure(s) Were Explained: Yes Critical Care Critical Care Time Critical Care Time: No
--- NOTE | 2023-12-15 01:56 | CT_ITS ---
PROCEDURE INFORMATION: Exam: CT Abdomen And Pelvis With Contrast Exam date and time: 12/15/2023 2:26 AM Age: 63 years old Clinical indication: Abdominal pain; Additional info: Abd pain/bloating, HX diverticulitis TECHNIQUE: Imaging protocol: Computed tomography of the abdomen and pelvis with contrast. Radiation optimization: All CT scans at this facility use at least one of these dose optimization techniques: automated exposure control; mA and/or kV adjustment per patient size (includes targeted exams where dose is matched to clinical indication); or iterative reconstruction. Contrast material: ISOVUE; Contrast volume: 75 ml; Contrast route: IV; COMPARISON: CT ABDOMEN PELVIS W CON 08/04/2020 8:22 PM FINDINGS: Lungs: Stable tiny scar posterolateral right lower lobe. Diaphragm: A small hiatal hernia is present. Liver: Hepatic steatosis is noted. No mass. Gallbladder and bile ducts: Normal. No calcified stones. No ductal dilation. Pancreas: Normal. No ductal dilation. Spleen: Normal. No splenomegaly. Adrenal glands: Normal. No mass. Kidneys and ureters: The kidneys demonstrate symmetric function. Left renal parapelvic cysts are noted. Stomach and bowel: There is diffuse colonic diverticulosis without acute inflammation. No obstruction. No mucosal thickening. Appendix: No evidence of appendicitis. The appendix is not identified as a discrete structure however, there is no inflammatory process in the region of the cecum. Intraperitoneal space: Unremarkable. No free air. No significant fluid collection. Vasculature: Unremarkable. No abdominal aortic aneurysm. Incidental note is made of a circumaortic left renal vein. Lymph nodes: Unremarkable. No enlarged lymph nodes. Urinary bladder: Unremarkable as visualized. Reproductive: Unremarkable as visualized. Bones/joints: Diffuse moderate degenerative changes of the spine. No acute fracture. Soft tissues: Unremarkable. IMPRESSION: 1. There is no acute process evident within the abdomen or pelvis. 2. Nonurgent findings as detailed. COMMENTS: Consistent with the [employer]'s Incidental Findings Committee white paper (J Am Gabriel Radiol 2018): Any incidental renal lesion less than 1 cm or classified as too small to characterize, or any incidental cystic renal lesion characterized as simple-appearing, is likely benign. No follow-up imaging is recommended for these lesions per consensus recommendations based on imaging criteria.
[2023-12-15] MEDS: ONDANSETRON 4MG/2ML VIAL 4 MG IV (02:04)
[2023-12-15] MEDS: LACTATED RINGERS 1000ML 1,000 ML 999 ML IV (02:04)
[2023-12-15 02:06] LABS: Basophils # 0.1 K/mm3 (0-0.2); Basophils % 0.8 % (0.1-2.0); Eosinophils # 0.1 K/mm3 (0.0-0.4); Eosinophils % 1.2 % (0.1-12.0); Hematocrit 43.1 % (42.0-52.0); Hemoglobin 14.8 g/dL (14.1-18.0); Lymphocytes # 0.4 K/mm3 (0.7-4.5); Lymphocytes % 5.4 % (10-50); Mean Corpuscular HGB Conc 34.4 g/dL (31.8-35.4); Mean Corpuscular Hemoglobin 31.8 pg (27.0-31.2); Mean Corpuscular Volume 92.2 fl (80-94); Mean Platelet Volume 7.4 fl (7.4-10.4); Monocytes # 0.2 K/mm3 (0.1-1.0); Monocytes % 3.1 % (1.7-9.3); Neutrophils # 6.8 K/mm3 (1.8-7.8); Neutrophils % 89.5 % (37.0-80.0); Platelet Count 183 K/mm3 (142-424); Red Blood Count 4.67 M/mm3 (4.60-6.20); Red Cell Distribution Width 13.7 % (11.5-17.5); White Blood Count 7.6 K/mm3 (4.8-10.8)
[2023-12-15 02:07] LABS: MANUAL DIFFERENTIAL MANUAL DIFFERENTIAL (MANUAL DIFF)
[2023-12-15 02:15] LABS: Albumin Level 4.7 g/dl (3.5-5.0); Albumin/Globulin Ratio 1.8 (1.1-1.8); Alkaline Phosphatase 60 U/L (38-126); Anion Gap 11.1 mEq/L (5-15); Aspartate Amino Transferase 64 U/L (17-59); Bilirubin,Total 1.6 mg/dl (0.2-1.3); Blood Urea Nitrogen 14 mg/dl (9-20); Calcium 9.3 mg/dl (8.4-10.2); Carbon Dioxide 25 mmol/L (22.0-30.0); Chloride 107 mmol/L (98-107); Creatinine Clearance Estimated 117 mL/min (50-200); Estimated Glomerular Filt Rate 86 ml/min (>60); GFR (African American) 103 ML/MIN (>60); Globulin 2.6 g/dL (1.3-3.2); Glucose 134 mg/dl (74-100); Lipase 107 U/L (23-300); Potassium 4.1 mmoL/L (3.5-5.1); Sodium 139 mmol/L (136-145); Total Protein,Serum 7.3 g/dl (6.3-8.2)
[2023-12-15 02:16] LABS: Alanine Aminotransferase 51 U/L (12-78)
[2023-12-15 02:23] LABS: Eosinophils % 1 % (0-3); Lymphocytes % 9 % (10-50); Monocytes % 1 % (2-9); Neutrophils % 89 % (42-76); Total Cells Counted 100
[2023-12-15 02:24] LABS: Platelet Estimate Normal; RBC Morphology Normal
[2023-12-15] MEDS: IOPAMIDOL-370 (76%);100ML BOTTLE 75 ML IV (02:32)
[2023-12-15] MEDS: SODIUM CHLORIDE 0.9% 10ML SYR (RAD ONLY) 10 ML IV (02:32)
== END 2023-12-15 03:57 | disposition home or self-care (01) ==
PROVIDERS: Emergency Provider Emergency Medicine; PCP Family Medicine
DX: R14.0 Abdominal distension (gaseous) (principal); R11.2 Nausea with vomiting, unspecified; R10.13 Epigastric pain
CPT/HCPCS: 74177; 80053; 83690; 85007; 85025; 96361; 96374; 99284; J2405; Q9967

== ENCOUNTER 2023-12-16 10:50 | Outpatient (CLI) | payer OTHER, SELFPAY | END 2023-12-16 23:59 | disposition home or self-care (01) | LOC: RT 10:51 | PROVIDERS: PCP Family Medicine; Visit Provider Nurse Practitioner | DX: I47.10 Supraventricular tachycardia, unspecified (principal); I48.0 Paroxysmal atrial fibrillation; R94.31 Abnormal electrocardiogram [ECG] [EKG]; G47.33 Obstructive sleep apnea (adult) (pediatric) | CPT/HCPCS: 93270 ==

== ENCOUNTER 2024-01-13 13:54 | Outpatient (CLI) | payer OTHER, SELFPAY ==
[2024-01-13 15:17] LABS: Chloride 105 mmol/L (98-107); Sodium 139 mmol/L (136-145)
[2024-01-13 15:18] LABS: Potassium 4.5 mmoL/L (3.5-5.1)
[2024-01-13 15:21] LABS: Anion Gap 11.5 mEq/L (5-15); Blood Urea Nitrogen 16 mg/dl (9-20); Calcium 9.9 mg/dl (8.4-10.2); Carbon Dioxide 27 mmol/L (22.0-30.0); Estimated Glomerular Filt Rate 86 ml/min (>60); GFR (African American) 103 ML/MIN (>60); Glucose 90 mg/dl (74-100)
== END 2024-01-13 23:59 | disposition home or self-care (01) ==
LOC: LAB 13:55
PROVIDERS: PCP Family Medicine; Visit Provider Internal Medicine
DX: I48.0 Paroxysmal atrial fibrillation (principal); R94.31 Abnormal electrocardiogram [ECG] [EKG]
CPT/HCPCS: 36415; 80048

== ENCOUNTER → 2024-06-17 20:20 | Outpatient (CLI) | payer OTHER, SELFPAY | LOC: SL 20:22 | PROVIDERS: PCP Family Medicine; Visit Provider Specialist | DX: G47.33 Obstructive sleep apnea (adult) (pediatric) (principal); G47.34 Idiopathic sleep related nonobstructive alveolar hypoventilation | CPT/HCPCS: 95811 ==

== ENCOUNTER 2024-10-18 10:05 | Outpatient (CLI) | payer OTHER, SELFPAY ==
[2024-10-18 15:26] LABS: Coronavirus 19, PCR Not Detected (NotDetected)
[2024-10-18 16:36] LABS: Influenza A, PCR Not Detected (NotDetected); Influenza B, PCR Not Detected (NotDetected)
== END 2024-10-18 23:59 | disposition home or self-care (01) ==
LOC: LAB.DROPOF 10-19 13:01
PROVIDERS: PCP Student in an Organized Health Care Education/Training Program; Visit Provider Student in an Organized Health Care Education/Training Program
DX: J06.9 Acute upper respiratory infection, unspecified (principal)
CPT/HCPCS: 87636

== ENCOUNTER 2025-01-20 14:19 | Outpatient (CLI) | payer OTHER, SELFPAY ==
[2025-01-20 15:26] LABS: Basophils % 0.1 % (0.1-2.0); Eosinophils % 0.2 % (0.1-12.0); Hematocrit 43.2 % (42.0-52.0); Hemoglobin 14.8 g/dL (14.1-18.0); Immature Granulocytes # 0.07 10^3uL; Immature Granulocytes % 0.6 %; Lymphocytes % 9.6 % (10-50); Mean Corpuscular HGB Conc 34.3 g/dL (31.8-35.4); Mean Corpuscular Hemoglobin 31.3 pg (27.0-31.2); Mean Corpuscular Volume 91.3 fl (80-94); Mean Platelet Volume 11.2 fl (7.4-10.4); Monocytes # 0.6 K/mm3 (0.1-1.0); Monocytes % 5.2 % (1.7-9.3); Neutrophils # 9.2 K/mm3 (1.8-7.8); Neutrophils % 84.3 % (37.0-80.0); Nucleated Red Blood Cells # 0 10^3/uL; Nucleated Red Blood Cells % 0 %; Platelet Count 158 K/mm3 (142-424); Red Blood Count 4.73 M/mm3 (4.60-6.20); Red Cell Distribution Width 12.4 % (11.5-17.5); Red Cell Distribution Width-SD 41.1 fL; White Blood Count 10.9 K/mm3 (4.8-10.8)
[2025-01-20 16:04] LABS: Alanine Aminotransferase 29 U/L (12-78); Albumin Level 4.9 g/dl (3.5-5.0); Alkaline Phosphatase 55 U/L (38-126); Anion Gap 9.5 mEq/L (5-15); Aspartate Amino Transferase 28 U/L (17-59); Bilirubin,Direct 0.2 mg/dl (0.0-0.4); Bilirubin,Indirect 0.4 mg/dL (0.0-0.9); Bilirubin,Total 0.6 mg/dl (0.2-1.3); Bilirubin,Unconjugated 0.4 mg/dL (0.0-1.1); Blood Urea Nitrogen 21 mg/dl (9-20); Calcium 9.8 mg/dl (8.4-10.2); Carbon Dioxide 25 mmol/L (22.0-30.0); Chloride 109 mmol/L (98-107); Chol/HDL Ratio 3.2 (1-3.5); Cholesterol 189 mg/dl (140-200); Estimated Glomerular Filt Rate 75 ml/min (>60); GFR (African American) 91 ML/MIN (>60); Glucose 86 mg/dl (74-100); HDL Cholesterol 59 mg/dl (40-60); Magnesium 2.4 mg/dl (1.6-2.3); Potassium 4.5 mmoL/L (3.5-5.1); Sodium 139 mmol/L (136-145); Triglycerides 198 mg/dl (30-150); VLDL Cholesterol 40 mg/dL (0-40)
[2025-01-20 16:15] LABS: Direct LDL Cholesterol 104.64 mg/dL (100-129)
[2025-01-20 16:21] LABS: Free T4 (Free Thyroxine) 0.72 ng/dl (0.78-2.19)
[2025-01-20 16:35] LABS: Thyroid Stimulating Hormone 1.14 uIU/mL (0.465-4.68)
== END 2025-01-20 23:59 | disposition home or self-care (01) ==
LOC: LAB 14:20
PROVIDERS: PCP Family Medicine; Visit Provider Internal Medicine
DX: I20.89 Other forms of angina pectoris (principal); R94.31 Abnormal electrocardiogram [ECG] [EKG]
CPT/HCPCS: 36415; 80048; 80061; 80076; 83735; 84439; 84443; 85025; 93270

== ENCOUNTER 2025-01-28 07:38 | Outpatient (CLI) | payer OTHER, SELFPAY ==
--- NOTE | 2025-01-28 | CA_ITS ---
APPROVED REPORT EXAM: Comprehensive 2D, Doppler, and color-flow Echocardiogram Betting Clerks: Almita Chow RT(R) Ht: 5 ft 8 in Wt: 232lbs BSA: 2.18 BP: 158/74 mmHg Indications: bradycardia, AFIB, EVY, abn EKG, fatigue, HTN, GUTIERREZ, hyperlipidemia. 2D Dimensions LVEF (Ochoa's) 67.90 % M: 52 - 72 LV Volume 148.80 mL M: 62 - 150 LV Volume Index 68.3 mL/m2 M: 34 - 74 LA Volume 39.30 mL LA Volume Index 18.03 mL/m2 (M/F) 16-34 EF AP4 70.50 % EF AP2 64.9 % EF BP 67.9 % GL Strain -20.7 % M-Mode Dimensions RVDd 3.46 cm (0.9-2.6) LA Diam 3.43 cm (1.9-4.0) LVDd 5.59 cm (3.5-5.7) LVDs 4.10 cm (3.5-5.7) IVSd 1.05 cm (0.6-1.1) PWd 1.05 cm (0.6-1.1) EF (Teich) 51.50% FS 26.70% EDV (Teich) 153.00 mL ESV (Teich) 74.20 mL LV Diastology E Decel Time 253 (160-240 msec) E/A Ratio 1.2 Mitral Valve MV E Max Noel. 73.0 (40-130 cm/s) MV A Velocity 61.0 (40-130 cm/s) E/A Ratio 1.21 MV PHT 74.0 ms Left Ventricle The left ventricle is normal size. The left ventricular systolic function is normal. The left ventricular ejection fraction is within the normal range. There is normal left ventricular wall thickness. There is normal LV segmental wall motion. The left ventricular diastolic function is normal. LVEF is 55%. Right Ventricle The right ventricle is normal size. The right ventricular systolic function is normal. Atria Left atrium is mildly dilated. The right atrium is mildly dilated. There is no Doppler evidence of interatrial shunt. Aortic Valve The aortic valve opens well. There is no aortic valvular stenosis. No aortic regurgitation is present. Mitral Valve The mitral valve is normal in structure. No evidence of mitral valve stenosis. Trace mitral regurgitation. Tricuspid Valve Tricuspid valve is grossly normal in structure and function. Trace tricuspid regurgitation. There is insufficient TR jet to estimate RVSP. Pulmonic Valve The pulmonary valve is normal in structure. Trace pulmonic regurgitation. Great Vessels The aortic root is normal in size. IVC is normal in size and collapses >50% with inspiration. Pericardium There is no pericardial effusion. Other Information Study Quality: Fair Conclusion Normal biventricular systolic function. Mild biatrial dilation. No significant valvular stenosis or regurgitation. Electronically signed by : Bozena Sandoval MD 02/02/2025 13:43:38
== END 2025-01-28 23:59 | disposition home or self-care (01) ==
LOC: RT 07:39
PROVIDERS: PCP Family Medicine; Visit Provider Internal Medicine
DX: I11.9 Hypertensive heart disease without heart failure (principal); I48.91 Unspecified atrial fibrillation; G47.33 Obstructive sleep apnea (adult) (pediatric); R94.31 Abnormal electrocardiogram [ECG] [EKG]; R00.1 Bradycardia, unspecified; E78.5 Hyperlipidemia, unspecified
CPT/HCPCS: 93306

== ENCOUNTER 2025-05-02 09:45 | Outpatient (CLI) | payer OTHER, SELFPAY ==
[2025-05-02 20:53] LABS: Coronavirus 19, PCR Not Detected (NotDetected); Influenza A, PCR Not Detected (NotDetected); Influenza B, PCR Not Detected (NotDetected)
--- OUTSIDE RECORDS SUMMARY | 2025-05-03 10:58 | XMS_ITS | Clinical Summary ---
Author Organization [facility] Address [address] [place] [address] Care Team Providers Care Shove Up Name Role Phone Margie Gutiérrez MD Primary Care Provider + Allergies Active Allergy Reactions Criticality Noted Date Comments Codeine Dizziness Low 06/24/2024 Makes me feel funny Fentanyl Nausea Only High 07/08/2024 Medications allopurinol (ZYLOPRIM) 100 MG tablet Take 1 tablet by mouth Daily. 3 Active mupirocin (BACTROBAN) 2 % ointment 1 Application into the nostril(s) as directed by provider 2 (Two) Times a Day Beginning 5 days before surgery 22 g 06/24/2024 11:28 AM EDT 4 Active ondansetron (ZOFRAN) 4 MG tablet Take 1 tablet by mouth Every 8 (Eight) Hours As Needed for Post-op Nausea 30 tablet 06/24/2024 11:28 AM EDT 4 Active valsartan (DIOVAN) 320 MG tablet Take 1 tablet by mouth Daily. Active amLODIPine (NORVASC) 5 MG tablet Take 1 tablet by mouth Daily. Active Active Problems Problem Noted Date Diagnosed Date EVY (obstructive sleep apnea) 01/14/2023 Bradycardia 01/14/2023 Essential hypertension 01/14/2023 Hyperlipidemia LDL goal <100 01/14/2023 Gout Family History Medical History Relation Name Comments COPD Mother 72 Relation Name Status Comments Brother 2 Alive Father 50 Mother 72 Social History Tobacco Use Types Packs/Day Years Used Date Smoking Tobacco: Never Smokeless Tobacco: Never Alcohol Use Standard Drinks/Week Comments Yes 35 (1 standard drink = 0.6 oz pu re alcohol) beer Abuse Screen Answer Date Recorded Feels Unsafe at Home or Work/School no 07/08/2024 Feels Threatened by Someone no 03/2024 Does Anyone Try to Keep You From Having Contact with Others or Doing Things Outside Your Home? no 07/08/2024 Physical Signs of Abuse Present no 07/08/2024 Housing Stability Answer Date Recorded Current Living Arrangements home 03/2024 Potentially Unsafe Housing Conditions Not on donna e 07/08/2024 Disabilities Answer Date Recorded Difficulty Concentrating, Remembering or Making Decisions no 07/08/2024 Difficulty Managing Errands Independently no 07/08/2024 Education Answer Date Recorded Help with school or training? Not on file Preferred Language Citizen Of [place] 06/24/2024 Sex and Gender Information Value Date Recorded Sex Assigned at Not on file Legal Sex Male 12:20 PM EST Gender Identity Not on file Sexual Orientation Not on file Last Filed Vital Signs Vital Sign Reading Time Taken Comments Blood Pressure 136/80 07/08/2024 2:00 PM EST Pulse 61 07/08/2024 2:00 PM EST Temperature 36.8 C (98.2 F) 07/08/2024 2:00 PM EST Respiratory Rate 16 07/08/2024 2:00 PM EST Oxygen Saturation 96% 07/08/2024 2:00 PM EST Inhaled Oxygen Concentration - - Weight 102 kg (224 lb 13.9 oz) 06/24/2024 10:33 AM EDT Height 175.3 cm (5' 9 ) 06/24/2024 10:33 AM EDT Body Mass Index 33.21 06/24/2024 10:33 AM EDT Plan of Treatment Upcoming Encounters Date Type Department Care Team (Late st Contact Info) Description 06/29/2025 12:30 PM EDT Pre-Admission Testing [facility] PREADMISSION T [address] [place] [address] 07/06/2025 7:00 AM EST Hospital Encounter [facility] OR [address] [place] [address] Donato Rodriguez MD [address] [place] [address] 07/06/2025 7:00 AM EST - 07/06/2025 9:41 AM EST Surgery [facility] OR [address] [place] [address] Donato Rodriguez MD [address] [place] [address] ANTERIOR TOTAL HIP ARTHROPLASTY-RIGHT [72587 (CPT )] Scheduled Procedures Name Priority Associated Diagnoses Date/Ti me TOTAL HIP ARTHROPLASTY ANTERIOR 07/06/2025 7:00 AM EST Health Maintenance Due Date Last Done Comments LIPID PANEL 1961 COLOGUARD 2006 COLON CANCER SCREENING 5 YEA R SIGMOID[address] COLONOGRAPHY 2006 FECAL OCCULT BLOOD TEST 2006 FIT Testing (1 year) 2006 Pneumococcal Vaccine 50+ (1 of 1 - PCV) 2011 ANNUAL PHYSICAL 01/14/2023 HEPATITIS C SCREENING 01/14/2023 INFLUENZA VACCINE 06/01/2025 06/12/2024, , 06/19/2022, Additional history exists COLONOSCOPY 01/22/2031 01/22/2021, 12/09/2011 COLORECTAL CANCER SCREENING 01/22/2031 TDAP/TD VACCINES (3 - Td or Tdap) 04/27/2034 024, 08/03/2015 ZOSTER VACCINE Completed 08/14/2023, 03/20/2023 COVID-19 Vaccine Completed 06/12/2024, , 08/07/2021, Additional history exists Goals Goal Patient Goal Type Associated Problems Recent Progress Patient-Stated? Author Autogenera mariza Goal Care Plan Autogenerated Problem No [employer]ec[employer]le [employer] Implanted Type Area Duster Tender Device Identifier Shelf Expiration Date Model / Serial / Lot Hemost Abs Surgicel Orig 4x8in Strl - [id number] Implanted:Qty: 1 on 07/08/2024 by Samy Shaw MD at [facility] Implant Right: Shoulder ETHICON DIV OF J AND J [id number] 10/29/2028 [id number] / / [id number] Stem Hum/Shldr Univers Revers [place] Sz11 - [id number] Implanted:Qty: 1 on 07/08/2024 by Samy Shaw MD at [facility] Implant Right: Shoulder ARTHREX [id number] 11/29/2028 [id number] / / [id number] Liner Hum Univers Revers Lg 42 Pls3 - [id number] Implanted:Qty: 1 on 07/08/2024 by Samy Shaw MD at [facility] Implant Right: Shoulder ARTHREX 05/31/2025 [id number] / / [id number] Cp Shldr Totl Rev W/Apr - [id number] Implanted:Qty: 1 on 07/08/2024 by Samy Shaw MD at [facility] Implant Right: Shoulder ARTHREX CAPSHLDRTOTLREV WAUG / / Baseplt Trial /Aprg 24mm - [id number] Implanted:Qty: 1 on 07/08/2024 by Samy Shaw MD at [facility] Implant Right: Shoulder ARTHREX [id number] / / [id number] Baseplt Kamlesh Universprvers Lat /Aprg 28mm Pls2 - [id number] Implanted:Qty: 1 on 07/08/2024 by Samy Shaw MD at [facility] Implant Right: Shoulder ARTHREX [id number] 10/01/2028 [id number] / / [id number] Post Mod Universprvers Kamlesh 20mm - [id number] Implanted:Qty: 1 on 07/08/2024 by Samy Shaw MD at [facility] Implant Right: Shoulder ARTHREX [id number] 11/29/2028 [id number] / / [id number] Scrw Lk Kamlesh Univers Revers Periph 5.5x20mm - [id number] Implanted:Qty: 1 on 07/08/2024 by Samy Shaw MD at [facility] Implant Right: Shoulder ARTHREX [id number] 11/29/2028 [id number] / / [id number] Scrw Nl Kamlesh Univers Revers Periph 4.5x36mm - [id number] Implanted:Qty: 1 on 07/08/2024 by Samy Shaw MD at [facility] Implant Right: Shoulder ARTHREX [id number] 11/29/2028 [id number] / / [id number] Scrw Nl Kamlesh Univers Revers Periph 4.5x40mm - [id number] Implanted:Qty: 1 on 07/08/2024 by Samy Shaw MD at [facility] Implant Right: Shoulder ARTHREX [id number] 12/29/2028 [id number] / / [id number] Scrw Lk Kamlesh Univers Revers Periph 5.5x40mm - [id number] Implanted:Qty: 1 on 07/08/2024 by Samy Shaw MD at [facility] Implant Right: Shoulder ARTHREX [id number] 11/29/2028 [id number] / / [id number] Glenosphere Univers Revers Modular 28mm 42pls4 - [id number] Implanted:Qty: 1 on 07/08/2024 by Samy Shaw MD at [facility] Implant Right: Shoulder ARTHREX [id number] 08/31/2028 [id number] / / [id number] Cup Sut Univers Revers 42 Pls2 Rt - [id number] Implanted:Qty: 1 on 07/08/2024 by Samy Shaw MD at [facility] Implant Right: Shoulder ARTHREX [id number] 10/30/2027 [id number] / / [id number] Additional Health Concerns Active Problems Noted Date Diagnosed Date Autogenerated Problem 04/29/2025 Insurance Advance Directives Documents on File Type Date Recorded Patient [employer] Expl anation LIVING WILL - SCAN 06/24/2024 10:09 AM 20 24 Care Teams Shove Up Relationship Specialty Start Date End Date Margie Gutiérrez MD [address] [place] [id number] PCP - General Family Medicine 01/14/23
--- OUTSIDE RECORDS SUMMARY | 2025-05-03 10:58 | XMS_ITS | Clinical Summary ---
Author Organization [employer] ([place], [place], [place], [place]) Address [address] [place] [address] Care Team Providers Care Commercial Escrow Assistant Name Role Phone Unavailable Primary Care Provider Unavailabl e Social History Tobacco Use Types Packs/Day Years Used Date Smoking Tobacco: Never Assessed Food Insecurity Answer Date Recorded Food run out past 12 months Not on file 09/02 Food did not last past 12 months Not on file 09/20/2023 Employment Answer Date Recorded Help finding and keeping a job Not on file 0 09/20/2023 Family and Community Support Answer Faustino e Recorded Help with Day to Day Activities Not on file 09/20/2023 Feeling Lonely or Isolated Not on file 09/20 Educational Attainment Answer Date Salvador rded Speak language other than Namibian at home Not on file 09/20/2023 Want help with school or training Not on file 09/20/2023 Substance Use Answer Date Recorded Used prescription meds for non-medical reasons N ot on file 09/20/2023 Used illegal drugs past 12 months Not on file 09/20/2023 Sex and Gender Information Value Date Recorded Sex Assigned at Not on file Legal Sex Male 9:39 AM CDT Gender Identity Not on file Sexual Orientation Not on file Plan of Treatment Health Maintenance Due Date Last Done Comments CT Colonography 1961 Colonoscopy 1961 Colorectal Cancer Screening 1961 FOBT/FIT 1961 Fit-DNA (Cologuard) 1961 Sigmoidoscopy 1961 Depression Screening (12+) 1973 Tobacco Cessation Counseling and Screening (12+) 1973 HIV Screening 1976 Hepatitis C Screening 1979 DTAP/TDAP/TD VACCINES (1 - Tdap) 1980 Lipid Panel 1996 Pneumococcal 50+ years (1 of 1 - PCV) 2011 Shingles Vaccine (Zoster) (2 of 2) 05/15/20232022 COVID-19 VACCINE (2023-2 5 season) 2024 06/19/2022, 08/07/2021, 12/21/2020, Additional history exists Influenza Vaccine (#1) 2025 Respiratory Syncytial Virus (RSV) Adult or (1 - 1-dose 75+ series) 2036
--- OUTSIDE RECORDS SUMMARY | 2025-05-03 10:58 | XMS_ITS | Referral Summary ---
Author Organization [employer] ([place], [place], [place], [place]) Address [address] [place] [address] Care Team Providers Care Scout Executive Name Role Phone Unavailable Primary Care Provider [...] Date Salvador rded Speak language other than Faroese at home Not on file 09/20/2023 Want [...] Orientation Not on file Plan of Treatment Not on file
== END 2025-05-02 23:59 ==
LOC: LAB.DROPOF 05-03 10:19
PROVIDERS: PCP Student in an Organized Health Care Education/Training Program; Visit Provider Student in an Organized Health Care Education/Training Program
DX: R52 Pain, unspecified (principal)
CPT/HCPCS: 87636

== ENCOUNTER 2025-08-10 13:43 | Outpatient (CLI) | payer OTHER, SELFPAY ==
[2025-08-10 15:08] LABS: Blood Urea Nitrogen 19 mg/dl (9-20); Creatinine,Serum 1.30 mg/dl (0.66-1.25); Estimated Glomerular Filt Rate 56 ml/min (>60); GFR (African American) 67 ML/MIN (>60); Potassium 4.4 mmoL/L (3.5-5.1)
[2025-08-10 15:18] LABS: Anion Gap 18.4 mEq/L (5-15); Calcium 9.9 mg/dl (8.4-10.2); Carbon Dioxide 29 mmol/L (22.0-30.0); Chloride 100 mmol/L (98-107); Glucose 76 mg/dl (74-100); Sodium 143 mmol/L (136-145)
== END 2025-08-10 23:59 | disposition home or self-care (01) ==
LOC: LAB 13:43
PROVIDERS: PCP Family Medicine; Visit Provider Internal Medicine
DX: R60.1 Generalized edema (principal)
CPT/HCPCS: 36415; 80048

== ENCOUNTER 2025-08-29 17:00 | Outpatient (RCR) | payer OTHER, SELFPAY | END 2025-08-29 23:59 | disposition home or self-care (01) | LOC: PT 17:00 | PROVIDERS: PCP Student in an Organized Health Care Education/Training Program; Visit Provider Orthopaedic Surgery | DX: Z96.641 Presence of right artificial hip joint (principal) | CPT/HCPCS: 97110; 97161; 97530 ==